=== PATIENT | female | born 1970 | race Caucasian/White ===

== ENCOUNTER 2020-10-16 17:09 | Emergency (ER) | payer BC ==
[~2020-10-16] VITALS: Ht 167.6 cm; Wt 120.5 kg
[2020-10-16 17:13] VITALS: TEMP 97.9
[2020-10-16] MEDS ORDERED: SYNTHROID0.075 MG/T PO (17:20)
[2020-10-16] MEDS ORDERED: HUMULIN R 10100 U/ML SQ (17:21)
[2020-10-16 18:31] VITALS: BP 160/90; PULSE 87
== END 2020-10-16 18:32 | disposition home or self-care (01) ==
LOC: COL.ER 17:09
DX: S20.211A Contusion of right front wall of thorax, initial encounter (principal); E10.9 Type 1 diabetes mellitus without complications; E07.9 Disorder of thyroid, unspecified; Z96.41 Presence of insulin pump (external) (internal); Z79.890 Hormone replacement therapy; V43.62XA Car passenger injured in collision with other type car in traffic accident, initial encounter